=== PATIENT | male | born 1945 | race Caucasian/White ===

== ENCOUNTER 2023-03-28 18:19 | Inpatient (IN) | payer MEDICARE, BC, SELFPAY ==
[2023-03-28 18:20] VITALS: BP 143/112; PULSE 100; RESP 16; TEMP 36.4; O2SAT 98; BMI 26.6
--- NOTE | 2023-03-28 18:39 | ED.VIS.LOWEX ---
HPI History of Present Illness Chief Complaint: Wound Informant: patient Narrative Narrative: Patient presents with aches banding redness and pain to his left foot. Referred him by his primary physician. Patient is diabetic. He states his blood sugars normally run about 120-135. They have been running a little bit over 150 for the last couple days though. He does not have fevers chills sweats nausea or vomiting though. He states he had a callus on the medial aspect of his left great toe on Tuesday. But it was not red. Tuesday woke up and it was red and irritated. Tuesday evening it was red to the base of the toe. But he states today it is moved from the base of the toe over the top of the foot lateral aspect of the foot and is starting to cross the ankle and go up his leg with redness. No trauma. [facility] Medical History (Updated 03/28/23 @ 21:[address] Dagoberto Neri MD) Diabetes Home Medications amlodipine 10 mg tablet 10 mg PO DAILY 03/28/23 [History Last Taken 03/28/23] aspirin 81 mg tablet,delayed release (Adult Low Dose Aspirin) 81 mg PO DAILY 03/28/23 [History Last Taken 03/28/23] cilostazol 100 mg tablet 100 mg PO BID 03/28/23 [History Last Taken 03/28/23] doxazosin 4 mg tablet 4 mg PO QHS 03/28/23 [History Last Taken 03/27/23] dulaglutide 0.75 mg/0.5 mL subcutaneous pen injector (Trulicity) 1.5 mg subcut QWEEK 03/28/23 [History Last Taken 03/22/23] empagliflozin 25 mg tablet (Jardiance) 25 mg PO DAILY 03/28/23 [History Last Taken 03/28/23] lisinopril 10 mg-hydrochlorothiazide 12.5 mg tablet 1 tab PO DAILY 03/28/23 [History Last Taken 03/28/23] metformin 1,000 mg tablet 1,000 mg PO BID 03/28/23 [History Last Taken 03/28/23] omeprazole 20 mg capsule,delayed release 20 mg PO DAILY 03/28/23 [History Last Taken 03/28/23] Allergy/AdvReac Type Severity Reaction Status Date / Time No Known Allergies Allergy Verified 03/28/23 18:20 Family History (Updated 03/28/23 @ 21:[address] Juan M Lacy MD) Other Drug abuse Lung cancer Surgical History (Updated 03/28/23 @ 21:[address] Juan M Lacy MD) H/O foot surgery Social History Smoking Status: Former smoker ROS ROS ED ROS Narrative A complete review of systems was performed and is negative except as documented in the history of present illness. Some specific details below. Constitutional: No recent fevers or chills. No malaise. EYE: No visual complaints or pain. No clouding or blurring of vision. ENT: No difficulty swallowing. No swelling. No pain. CV: No chest pain or palpitations. Respiratory: No dyspnea. No hemoptysis. No difficulty taking breaths. GI: No nausea vomiting diarrhea or change in appetite. : No frequency dysuria or hematuria. Musculoskeletal: No recent trauma. See history of present illness Skin: No rash. Nondiaphoretic. See history of present illness. Neuro: No weakness or numbness. Endocrine: No polyuria or polydipsia. EXAM Physical Exam Narrative Exam Narrative: CONSTITUTIONAL: Patient is nontoxic in appearance. The patient looks comfortable. He does not look acutely toxic. HEENT: No notable trauma. Mucous membranes moist. No sinus tenderness. No indication of pain with swallowing. EYES: No conjunctival injection. No pallor. CARDIOVASCULAR: Regular rate. Regular rhythm. No notable murmur. No JVD. RESPIRATORY: No respiratory distress. Breathing is unlabored. No wheezes. No rhonchi. No rales. No pain with a deep breath. GASTROINTESTINAL: Not distended. Bowel sounds are normal. No tenderness. GENITOURINARY: No tenderness over the bladder. No CVA tenderness. MUSCULOSKELETAL: Distal medial aspect of the patient's left great toe shows a central callus but surrounding this is likely abscess. Tissue is white. It is not significantly fluctuant though. Around this is a fair amount of erythema. The erythema is encompasses the great toe and then goes over the dorsum of the left foot from the base of the toe across the top to the lateral aspect and then does start coming up the lateral distal leg area. The leg itself has no swelling or distended veins. No cord. NEUROLOGICAL: Patient is alert and appropriate. No focal deficit noted. SKIN: No noted rashes other than as above on the left foot. No diaphoresis. PSYCHIATRIC: Patient is calm. Mood is appropriate. Const Vital Signs: 03/28/23 18:20 03/28/23 20:03 03/28/23 20:04 Temperature 97.6 F L 98.1 F Temperature Source Temporal Oral Pulse Rate 100 87 71 Respiratory Rate 16 18 18 Blood Pressure 143/112 H 161/89 H 161/89 H Blood Pressure Mean 122 113 113 Pulse Ox 98 98 98 Oxygen Delivery Method Room Air Room Air 03/28/23 20:24 Temperature Temperature Source Pulse Rate 72 Respiratory Rate 18 Blood Pressure 153/77 H Blood Pressure Mean 102 Pulse Ox 98 Oxygen Delivery Method Room Air MDM MDM MDM Narrative Medical decision making narrative: Patient CBC shows normal white count but minimal anemia. Platelets are normal. Patient's electrolytes show minimally low potassium and this was replaced. Patient's lactic acid is normal. Patient's glucose was mildly high at 153. My independent interpretation of the patient's three-view x-ray of his left foot shows some soft tissue swelling but no definitive signs of osteo-. I do not see any gas. Final reading is similar. I discussed the case with foot and ankle surgeon Dr. Jeong. He will see the patient in consult. I then discussed case with the hospitalist and will be admitted. Although this patient's blood work does not show marked abnormalities, his sugar is higher than normal, and he has had relatively rapid progression of this erythema and lymphangitis. Lab Data Attestation: I reviewed the patient's lab results. Labs: Laboratory Results - last 24 hr 03/28/23 18:53 WBC 5.1 RBC 5.04 Hgb 12.5 L Hct 39.8 L MCV 79.0 L MCH 24.8 L MCHC 31.4 L RDW Std Deviation 43.8 RDW Coeff of Slick 15.5 H Plt Count 192 MPV 9.3 Immature Gran % (Auto) 0.600 Neut % (Auto) 63.0 Lymph % (Auto) 23.8 [place] % (Auto) 10.2 H Eos % (Auto) 2.0 Baso % (Auto) 0.4 Absolute Neuts (auto) 3.2 Absolute Lymphs (auto) 1.21 Nucleated RBC % 0 Sodium 137 Potassium 3.2 L Chloride 102 Carbon Dioxide 29.0 Anion Gap 6 BUN 18 Creatinine 1.24 Estim Creat Clear Calc 54.82 Est GFR (MDRD) Af Amer 73 Est GFR (MDRD) Non-Af 60 BUN/Creatinine Ratio 14.5 Glucose 153 H Lactic Acid 1.2 Calcium 9.3 Radiography Diagnostic Testing: Clinical Impression(s) from Imaging Studies Foot X-Ray 03/28/23 18:52 IMPRESSION: Swelling of the first digit. No radiographic evidence of osteomyelitis. Electronically Signed: Ady Altamirano MD at 19:44 EDT , Discharge Plan Dx/Rx/DC Orders Clinical Impression: Diabetic foot infection, Hyperglycemia, History of hypertension, History of diabetes mellitus Disposition Disposition: Acute Care [facility] Discharge Date/Time: 03/28/23 21:36
--- NOTE | 2023-03-28 18:52 | RAD_ITS ---
STUDY: X-RAY - LEFT FOOT CLINICAL: Male, 77 years old. osteo TECHNIQUE: 3 view(s) of the foot. COMPARISON: None. FINDINGS: Normal talus, calcaneus, and tarsal bones. Small plantar calcaneal enthesophyte. Normal visualized subtalar, talonavicular, calcaneocuboid, tarsal and tarsometatarsal articulations. Normal metatarsi. Normal metatarsophalangeal joint of the great toe. Normal tibial and fibular sesamoid bones. Normal interphalangeal joint of the great toe. Normal phalanges of the great toe. Normal second through fifth metatarsophalangeal joints. Normal interphalangeal joints and phalanges of the lesser toes. Soft tissue swelling of the first digit. No bone destruction to suggest osteomyelitis RAD/Foot min 3 Views IMPRESSION: Swelling of the first digit. No radiographic evidence of osteomyelitis. Electronically Signed: Ady Altamirano MD at 19:44 EDT ,
[2023-03-28 18:59] LABS: Absolute Lymphocyte Count 1.21 X10^3/uL (0.83-4.51); Absolute Neutrophil Count 3.2 X10^3/uL (2.0-7.7); Basophil# 0.02 X10^3/uL; Basophil% 0.4 % (0-1); Hematocrit 39.8 % (40-54); Hemoglobin 12.5 g/dL (13.0-16.5); Lymphocyte # 1.21 X10^3/ul (0.83-4.51); Lymphocyte % 23.8 % (19-41); Mean Corp Hgb Conc 31.4 g/dL (32-36); Mean Corpuscular Hgb 24.8 pg (27.0-32.0); Mean Platelet Vol. 9.3 fl (6.2-12.0); Monocyte# 0.52 X10^3/uL; Monocyte% 10.2 % (0-10); NRBC Flagged by Analyzer 0 % (0-5); Neutrophil # 3.21 X10^3/uL (2.7-7.7); Platelet Count 192 K/mm3 (150-450); RBC Distribution Width CV 15.5 % (11.6-14.6); RBC Distribution Width SD 43.8 fl (35.1-43.9); Red Blood Count 5.04 M/mm3 (4.6-6.2); White Blood Count 5.1 K/mm3 (4.4-11.0)
[2023-03-28 19:12] LABS: Anion Gap 6 (5-15); BUN 18 mg/dL (7-18); BUN/Creat Ratio 14.5 RATIO (10-20); Calcium,Total 9.3 mg/dL (8.5-10.1); Chloride 102 mmol/L (98-107); Creatinine, Serum 1.24 mg/dL (0.70-1.30); EST Glomerular Filtration Rate 60 mL/min (>60); Est Glom Filt Rate - Afr Amer 73 mL/min (>60); Estimated Creatinine Clearance 54.82 ml/min; Glucose 153 mg/dL (74-106); Potassium 3.2 mmol/L (3.5-5.1); Sodium Level 137 mmol/L (136-145)
[2023-03-28] MEDS: Vancomycin HCl 1,250 MG in 0.9% Normal Saline (250mL Bag) 250 ML 167 MG IV (19:15)
[2023-03-28 19:25] LABS: Lactic Acid 1.2 mmol/L (0.4-1.9)
[2023-03-28] MEDS: Potassium Chloride Oral Tablet 20 MEQ 40 MEQ PO (19:32)
[2023-03-28 20:03] VITALS: BP 161/89; PULSE 87; RESP 18; O2SAT 98
[2023-03-28 20:04] VITALS: BP 161/89; PULSE 71; RESP 18; TEMP 36.7; O2SAT 98
--- NOTE | 2023-03-28 20:16 | PCM.HP.STD ---
HPI - General General Date of Admission: 03/28/23 Date of Service: 03/28/23 Chief Complaint: Erythema of left foot HPI Narrative ADY SHOEMAKER, is a 77 M with a significant history of hypertension and diabetes mellitus who presents to the emergency department with erythema of his left foot. His symptoms started 2 days ago with development of pain on the callus located at the medial side of his left big toe. His symptoms progress to erythema, swelling and pain of the left big toe that progressed to his left foot and to his left leg. He called his podiatry office and was told to come to the emergency department. However he did not come to the emergency department until he went to see his PCP for regular appointment and he was again advised to come to the emergency department. He denies any fever. He has chills that he attributes to Trulicity that was started about 2 weeks ago. He has anorexia. Emergency department doctor discussed the case with podiatry who recommended admission with possible debridement and antibiotics. [facility] Medical History (Updated 03/29/23 @ 09:[address] Juan M Lacy MD) Diabetes Hypertension Hypertension Home Medications amlodipine 10 mg tablet 10 mg PO DAILY 03/28/23 [History Last Taken 03/28/23] aspirin 81 mg tablet,delayed release (Adult Low Dose Aspirin) 81 mg PO DAILY 03/28/23 [History Last Taken 03/28/23] cholecalciferol (vitamin D3) 50 mcg (2,000 unit) capsule (Vitamin D3) 2,000 unit PO DAILY vitamin 03/28/23 [History Last Taken 03/28/23] cilostazol 100 mg tablet 100 mg PO BID 03/28/23 [History Last Taken 03/28/23] cyanocobalamin (vitamin B-12) 1,000 mcg tablet,extended release (Vitamin B-12 ER) 1,000 mcg PO DAILY vitamin 03/28/23 [History Last Taken 03/28/23] doxazosin 4 mg tablet 4 mg PO QHS 03/28/23 [History Last Taken 03/27/23] dulaglutide 0.75 mg/0.5 mL subcutaneous pen injector (Trulicity) 1.5 mg subcut QWEEK 03/28/23 [History Last Taken 03/22/23] empagliflozin 25 mg tablet (Jardiance) 25 mg PO DAILY 03/28/23 [History Last Taken 03/28/23] lisinopril 10 mg-hydrochlorothiazide 12.5 mg tablet 1 tab PO DAILY 03/28/23 [History Last Taken 03/28/23] metformin 1,000 mg tablet 1,000 mg PO BID 03/28/23 [History Last Taken 03/28/23] omeprazole 20 mg capsule,delayed release 20 mg PO DAILY 03/28/23 [History Last Taken 03/28/23] Allergy/AdvReac Type Severity Reaction Status Date / Time No Known Allergies Allergy Verified 03/28/23 18:20 Family History Other Drug abuse Lung cancer Surgical History H/O foot surgery Social History Smoking Status: Former smoker ROS ROS Narrative Pertinent positives and pertinent negatives as noted in HPI. All other systems were reviewed and are negative Vital Signs Vital Signs Vital Signs: 03/28/23 18:20 03/28/23 20:03 03/28/23 20:04 Temperature 97.6 F L 98.1 F Temperature Source Temporal Oral Pulse Rate 100 87 71 Respiratory Rate 16 18 18 Blood Pressure 143/112 H 161/89 H 161/89 H Blood Pressure Mean 122 113 113 Pulse Ox 98 98 98 Oxygen Delivery Method Room Air Room Air Weight Weight: 86.636 kg Body Mass Index (BMI) 26.6 Physical Exam Narrative Physical exam: General: Well-nourished, well-developed. Head: Normocephalic, atraumatic, no tenderness Eyes: Vision is grossly intact. EOMI ENT, no trauma, moist mucous membranes, no rhinorrhea Neck: Nontender, No thyromegaly. CVS: Regular rate and rhythm. S1-S2 present. No murmur, gallop or rub. Respiratory : clear to auscultation bilaterally, chest wall nontender Abdomen: Soft, nontender, nondistended, normal bowel sounds, no masses : Deferred Back: Nontender, no CVA tenderness, no midline spinal tenderness, deformities, step-offs Extremities: Ulcer of left big toe. Erythema and swelling of left big toe extending to left leg. Tender left big toe. Right foot with no tenderness, swelling or erythema. Skin: Normal color, no trauma, abrasions Neuro: Alert, oriented, cranial nerves II through XII grossly intact. Psychiatry: Normal mood. Normal affect. Not depressed. Not anxious. Results Lab / Micro Data 03/29/23 06:40 03/29/23 06:40 Labs: Laboratory Results - last 24 hr 03/28/23 18:53: WBC 5.1, RBC 5.04, Hgb 12.5 L, Hct 39.8 L, MCV 79.0 L, MCH 24.8 L, MCHC 31.4 L, RDW Std Deviation 43.8, RDW Coeff of Slick 15.5 H, Plt Count 192, MPV 9.3, Immature Gran % (Auto) 0.600, Neut % (Auto) 63.0, Lymph % (Auto) 23.8, [place] % (Auto) 10.2 H, Eos % (Auto) 2.0, Baso % (Auto) 0.4, Absolute Neuts (auto) 3.2, Absolute Lymphs (auto) 1.21, Nucleated RBC % 0, Sodium 137, Potassium 3.2 L, Chloride 102, Carbon Dioxide 29.0, Anion Gap 6, BUN 18, Creatinine 1.24, Estim Creat Clear Calc 54.82, Est GFR (MDRD) Af Amer 73, Est GFR (MDRD) Non-Af 60, BUN/Creatinine Ratio 14.5, Glucose 153 H, Lactic Acid 1.2, Calcium 9.3 Radiology Impression Foot X-Ray 03/28/23 18:52 IMPRESSION: Swelling of the first digit. No radiographic evidence of osteomyelitis. Electronically Signed: Ady Altamirano MD at 19:44 EDT , Assessment & Plan Assessment/Plan (1) Diabetic foot ulcer: QUALIFIERS: Diabetic foot ulcer location: toe Diabetes mellitus type: type 2 Laterality: left Non-pressure ulcer stage: limited to breakdown of skin Qualified Code(s): E11.621 - Type 2 diabetes mellitus with foot ulcer; L97.521 - Non-pressure chronic ulcer of other part of left foot limited to breakdown of skin (2) Cellulitis: QUALIFIERS: Site of cellulitis: extremity Site of cellulitis of extremity: lower extremity Laterality: left Qualified Code(s): L03.116 - Cellulitis of left lower limb (3) Diabetes type 2, controlled: QUALIFIERS: Diabetes mellitus senior living insulin use: without terminal carman use Diabetes mellitus complication status: with skin complications Diabetes mellitus complication detail: with foot ulcer Qualified Code(s): E11.621 - Type 2 diabetes mellitus with foot ulcer; L97.509 - Non-pressure chronic ulcer of other part of unspecified foot with unspecified severity PLAN: Plan Infected diabetic foot ulcer with cellulitis Normal white count on presentation. Check ESR and CRP. Impression of foot x-ray by radiology: swelling of the right digit. No radiographic evidence of osteomyelitis. Foot x-ray was independently interpreted by hospitalist: Agrees with radiology interpretation Vancomycin ordered at the emergency department.t. Vancomycin continued. Cefazolin was added. We will change to Unasyn to take care of anaerobes as well. Podiatry consult. Diabetes mellitus Blood glucose is stable Home metformin held. Jardiance continued. On home Trulicity Correction scale insulin ordered. CKD stage II Stable Trend BMP. Hypertension Blood pressure is not within goal Home blood pressure medication. Trend blood pressure and adjust blood pressure medications. Hypokalemia Replaced in the ED Trend DVT prophylaxis SCDs ordered. Time spent in the patient's overall evaluation,decision-making process, review of diagnostic data, adjustment of management, discussion with other providers, nursing and ancillary staff involved in patient's care documentation, 70 minutes. Charges/Coding Visit Charges Inpatient E&M: 50403 Init Hosp L3
[2023-03-28 20:24] VITALS: BP 153/77; PULSE 72; RESP 18; O2SAT 98
--- NOTE | 2023-03-28 20:48 | CM.ED ---
Social Work SW performed chart review; ADs not on file. SW met with patient and introduced self and role as [facility] SW. Patient seated on hospital bed and agreeable to speak to SW. SW inquired about completion of ADs. Patient confirms LW and HCPOA documents were completed. Patient's HCPOA is patient's , November with no alternates listed. SW encouraged patient to bring a copy to add to patient's chart when they are able; patient voiced understanding. Janet Alonzo CORPORATE ADMINISTRATIVE ASSISTANT, MUNDO
[2023-03-28 21:01] LABS: Bedside Glucose 98 mg/dL (74-106)
[2023-03-28 21:27] VITALS: BP 145/79; PULSE 67; RESP 18; TEMP 36.6; O2SAT 94
[2023-03-28 21:50] VITALS: BMI 26.4
[2023-03-28 22:00] VITALS: BP 131/69; PULSE 88; RESP 17; TEMP 36.6; O2SAT 97
[2023-03-28] MEDS: Cefazolin 2 GM in 0.9% Normal Saline (100mL Bag) 100 ML IV (22:35)
[2023-03-28] MEDS: 0.9% Saline Lock 10 ML Syringe IV (22:35)
[2023-03-28] MEDS: Doxazosin 4 MG Tablet PO (22:36)
[2023-03-28] MEDS: Cilostazol 50 MG Tablet 100 MG PO (22:36)
[2023-03-28 22:43] LABS: Bedside Glucose 148 mg/dL (74-106)
[2023-03-29 04:00] VITALS: BP 128/65; PULSE 82; RESP 16; TEMP 36.6; O2SAT 98
[2023-03-29] MEDS: Cefazolin 2 GM in 0.9% Normal Saline (100mL Bag) 100 ML IV (06:24)
[2023-03-29 06:47] LABS: Bedside Glucose 132 mg/dL (74-106)
[2023-03-29 07:01] LABS: Absolute Lymphocyte Count 0.83 X10^3/uL (0.83-4.51); Absolute Neutrophil Count 2.7 X10^3/uL (2.0-7.7); Basophil# 0.03 X10^3/uL; Basophil% 0.7 % (0-1); Eosinophil# 0.08 X10^3/uL; Eosinophils% 1.9 % (0-5); Hemoglobin 11.5 g/dL (13.0-16.5); Lymphocyte # 0.83 X10^3/ul (0.83-4.51); Lymphocyte % 20.1 % (19-41); Mean Corp Hgb Conc 31.9 g/dL (32-36); Mean Corpuscular Hgb 25.1 pg (27.0-32.0); Mean Corpuscular Volume 78.4 fL (80-94); Mean Platelet Vol. 9.1 fl (6.2-12.0); Monocyte# 0.46 X10^3/uL; Monocyte% 11.1 % (0-10); NRBC Flagged by Analyzer 0 % (0-5); Neutrophil % 65.5 % (47-70); Platelet Count 185 K/mm3 (150-450); RBC Distribution Width CV 15.2 % (11.6-14.6); RBC Distribution Width SD 43.4 fl (35.1-43.9); Red Blood Count 4.59 M/mm3 (4.6-6.2); White Blood Count 4.1 K/mm3 (4.4-11.0)
[2023-03-29 07:03] VITALS: O2SAT 97
[2023-03-29 07:30] LABS: Anion Gap 7 (5-15); BUN 15 mg/dL (7-18); BUN/Creat Ratio 13.6 RATIO (10-20); Calcium,Total 8.7 mg/dL (8.5-10.1); Chloride 106 mmol/L (98-107); EST Glomerular Filtration Rate 69 mL/min (>60); Est Glom Filt Rate - Afr Amer 84 mL/min (>60); Glucose 130 mg/dL (74-106); Potassium 3.7 mmol/L (3.5-5.1); Sodium Level 138 mmol/L (136-145)
--- NOTE | 2023-03-29 07:54 | PCM.PN.HOSP ---
Reason for Visit Reason for Visit: Patient is a 77-year-old gentleman with multiple comorbidities including diabetes mellitus type 2, essential hypertension who presented with left foot ulcer with cellulitis. Imaging studies on admission was negative for osteomyelitis admitted to regular nursing floor with consultation placed to podiatry Objective Data Objective Data Vital Signs: Vital Signs Temp Pulse Resp BP Pulse Ox O2 Del Method 97.9 F 82 16 128/65 H 98 Room Air 03/29/23 04:00 03/29/23 04:00 03/29/23 04:00 03/29/23 04:00 03/29/23 04:00 03/29/23 04:00 Oxygen Delivery Method Room Air Weight: 86.2 kg Body Mass Index (BMI) 26.4 Intake & Output: Intake and Output for Last 24 Hours 03/27/23 03/28/23 03/29/23 23:59 23:59 23:59 Intake Total 385 / 385 Balance 385 / 385 Lab / Micro Data 03/29/23 06:40 03/29/23 06:40 Labs: Laboratory Results - last 24 hr 03/28/23 18:53: WBC 5.1, RBC 5.04, Hgb 12.5 L, Hct 39.8 L, MCV 79.0 L, MCH 24.8 L, MCHC 31.4 L, RDW Std Deviation 43.8, RDW Coeff of Slick 15.5 H, Plt Count 192, MPV 9.3, Immature Gran % (Auto) 0.600, Neut % (Auto) 63.0, Lymph % (Auto) 23.8, [place] % (Auto) 10.2 H, Eos % (Auto) 2.0, Baso % (Auto) 0.4, Absolute Neuts (auto) 3.2, Absolute Lymphs (auto) 1.21, Nucleated RBC % 0, Sodium 137, Potassium 3.2 L, Chloride 102, Carbon Dioxide 29.0, Anion Gap 6, BUN 18, Creatinine 1.24, Estim Creat Clear Calc 54.82, Est GFR (MDRD) Af Amer 73, Est GFR (MDRD) Non-Af 60, BUN/Creatinine Ratio 14.5, Glucose 153 H, Lactic Acid 1.2, Calcium 9.3 03/28/23 20:43: POC Glucose 98 03/28/23 22:24: POC Glucose 148 H 03/29/23 06:26: POC Glucose 132 H 03/29/23 06:40: WBC 4.1 L, RBC 4.59 L, Hgb 11.5 L, Hct 36.0 L, MCV 78.4 L, MCH 25.1 L, MCHC 31.9 L, RDW Std Deviation 43.4, RDW Coeff of Slick 15.2 H, Plt Count 185, MPV 9.1, Immature Gran % (Auto) 0.700, Neut % (Auto) 65.5, Lymph % (Auto) 20.1, [place] % (Auto) 11.1 H, Eos % (Auto) 1.9, Baso % (Auto) 0.7, Absolute Neuts (auto) 2.7, Absolute Lymphs (auto) 0.83, Nucleated RBC % 0, Sodium 138, Potassium 3.7, Chloride 106, Carbon Dioxide 25.0, Anion Gap 7, BUN 15, Creatinine 1.10, Estim Creat Clear Calc 61.80, Est GFR (MDRD) Af Amer 84, Est GFR (MDRD) Non-Af 69, BUN/Creatinine Ratio 13.6, Glucose 130 H, Calcium 8.7 Radiography Diagnostic Testing: Radiology Impression Foot X-Ray 03/28/23 18:52 IMPRESSION: Swelling of the first digit. No radiographic evidence of osteomyelitis. Electronically Signed: Ady Altamirano MD at 19:44 EDT , Physical Exam Narrative GENERAL: cooperative HEENT: Atraumatic; normocephalic EYES; Anicteric, Normal Conjunctiva NECK; supple, normal thyroid, RESPIRATORY: Diminished to auscultation CARDIOVASCULAR: Regular S1 S2, GI: soft, normoactive bowel sounds, : No Renal angle tenderness; EXTREMITIES: No edema, no clubbing, MUSCULOSKELETAL: Left foot in surgical dressing NEURO: Awake; no lateralizing signs. SKIN: No Rash PSYCH; Flat affect Assessment & Plan Assessment/Plan (1) Diabetic foot infection: PLAN: Plan Patient is a 77-year-old gentleman with multiple comorbidities including diabetes mellitus type 2, essential hypertension who presented with left foot ulcer with cellulitis. Imaging studies on admission was negative for osteomyelitis admitted to regular nursing floor with consultation placed to podiatry 1. Infected diabetic foot ulcer with cellulitis ? Imaging studies negative for osteomyelitis. Patient started on broad-spectrum antibiotic therapy. Consult placed to podiatry patient seen by Dr. Srinivas Bellamy with plan for patient to undergo left hallux interphalangeal joint arthroplasty on 03/30/2023 2. Diabetes mellitus type 2 ? Held patient oral agents placed on Accu-Cheks before meals and at bedtime with sliding scale coverage 3. Hypertension - Blood pressure controlled, home medications continued with dose adjustment as needed 4. Hypokalemia ? Corrected per protocol repeat labs ordered for subsequent monitoring 5. DVT prophylaxis ? SCDs for now with plans to initiate chemoprophylaxis following patient surgery Time spent in the patient's overall evaluation,decision-making process, review of diagnostic data, adjustment of management, discussion with other providers, nursing nursing and ancillary staff involved in patient's care documentation, 40 Minutes Charges/Coding Visit Charges Inpatient E&M: 93763 Subs Hosp L2
--- NOTE | 2023-03-29 07:59 | MRI_ITS ---
EXAM: MR FOOT W/O Contrast LEFT HISTORY: foot infection TECHNIQUE: MR FOOT W/O Contrast LEFT COMPARISON: XR left foot March 28, 2023. LIMITATIONS: None. FINDINGS: Subcutaneous edema at the dorsum of the foot and at the plantar aspect of the first digit to a lesser degree. No abscess identified. Signal within the distal phalanx of the first digit is mildly increased on the STIR images. There is no corresponding decreased T1 signal. No osseous erosion. No acute fracture. MRI/Lower Ext/No Jt/w/o IMPRESSION: Questionable mild marrow edema of the distal phalanx of the first digit. This could be artifactual or due to reactive marrow edema. Early osteomyelitis is difficult to exclude, but findings are not definitive. Electronically Signed: Jerome Hurst MD at 19:40 EDT ,
--- NOTE | 2023-03-29 08:08 | PCM.CONS.GEN ---
Assessment & Plan Assessment/Plan (1) Hallux rigidus, left foot: PLAN: Exam performed Patient vitally stable, labs within normal limits, radiographs negative for osteomyelitis Left foot MRI ordered Left foot wound was excisionally debrided down to including level subcutaneous tissue of all nonviable tissue using a sterile 15 blade. This was performed without incident. No anesthesia due to neuropathy. Patient tolerated procedure well. Hemostasis obtained with light compression. Pre and postdebridement measurements documented in objective section. Wound cultures taken. Site dressed with Betadine DSD Eusebio bandage Patient heel weightbearing in surgical shoe on left side Planning for left hallux interphalangeal joint arthroplasty on 03/30/2023 (2) Abscess of left foot: (3) Diabetic foot infection: (4) Non-pressure chronic ulcer of other part of left foot with fat layer exposed: HPI Consult Data Date of Consult: 03/29/23 HPI Narrative HPI Narrative: SHELLI SHOEMAKER, is a 77 M who presents with left hallux redness swelling pain and purulent drainage. Patient admitted through ER. Radiographs were negative. Patient usually gets a callus to the site. Patient typically self Layla the site. Patient is diabetes been relatively well controlled and he has intact sensation. Patient denies constitutional symptoms has no other complaints. This problem started over the weekend is progressively gotten worse. FORMERLY [facility] Medical History Diabetes Hypertension Home Medications amlodipine 10 mg tablet 10 mg PO DAILY 03/28/23 [History Last Taken 03/28/23] aspirin 81 mg tablet,delayed release (Adult Low Dose Aspirin) 81 mg PO DAILY 03/28/23 [History Last Taken 03/28/23] cholecalciferol (vitamin D3) 50 mcg (2,000 unit) capsule (Vitamin D3) 2,000 unit PO DAILY vitamin 03/28/23 [History Last Taken 03/28/23] cilostazol 100 mg tablet 100 mg PO BID 03/28/23 [History Last Taken 03/28/23] cyanocobalamin (vitamin B-12) 1,000 mcg tablet,extended release (Vitamin B-12 ER) 1,000 mcg PO DAILY vitamin 03/28/23 [History Last Taken 03/28/23] doxazosin 4 mg tablet 4 mg PO QHS 03/28/23 [History Last Taken 03/27/23] dulaglutide 0.75 mg/0.5 mL subcutaneous pen injector (Trulicity) 1.5 mg subcut QWEEK 03/28/23 [History Last Taken 03/22/23] empagliflozin 25 mg tablet (Jardiance) 25 mg PO DAILY 03/28/23 [History Last Taken 03/28/23] lisinopril 10 mg-hydrochlorothiazide 12.5 mg tablet 1 tab PO DAILY 03/28/23 [History Last Taken 03/28/23] metformin 1,000 mg tablet 1,000 mg PO BID 03/28/23 [History Last Taken 03/28/23] omeprazole 20 mg capsule,delayed release 20 mg PO DAILY 03/28/23 [History Last Taken 03/28/23] Allergy/AdvReac Type Severity Reaction Status Date / Time No Known Allergies Allergy Verified 03/28/23 18:20 Family History Other Drug abuse Lung cancer Surgical History H/O foot surgery Social History Smoking Status: Former smoker ROS Constitutional Constitutional: Denies daytime sleepiness, lethargy or malaise Eyes Eyes: Denies blind spots, bloody eye or discharge from eye(s) ENT HEENT: Denies change in voice, dental pain or foreign body in nose Cardiovascular Cardiovascular: Denies abdominal pain, claudication or clubbing Respiratory/Chest Respiratory/Chest: Denies change in phlegm color, chest congestion or dyspnea on exertion Gastrointestinal Gastrointestinal: Denies change in bowel habits, dry heaves or dyspepsia Physical Exam Narrative Dorsalis pedis posterior tibial pulses palpable 2 out of 4 to bilateral lower extremity. Digital hair growth noted bilaterally. No signs of atrophic skin changes. Neurologic light touch protective sensation intact bilateral feet Dermatologic predebridement there is noted to be a purulent bolus to the left medial hallucal IPJ postdebridement there is a full-thickness wound down to level of subcutaneous tissue measuring approximately 4.0 x 3.0 by 0.4 cm with significant periwound edema erythema malodor as well as warmth. No evidence of fluctuance or crepitus. Patient has diminished left hallux metatarsophalangeal joint range of motion to less than 20 degrees of dorsiflexion. This contributing to wound formation Const alert and oriented x3 Lab / Micro Data 03/29/23 06:40 03/29/23 06:40 Labs: Laboratory Results - last 24 hr 03/28/23 18:53: WBC 5.1, RBC 5.04, Hgb 12.5 L, Hct 39.8 L, MCV 79.0 L, MCH 24.8 L, MCHC 31.4 L, RDW Std Deviation 43.8, RDW Coeff of Slick 15.5 H, Plt Count 192, MPV 9.3, Immature Gran % (Auto) 0.600, Neut % (Auto) 63.0, Lymph % (Auto) 23.8, Montrose % (Auto) 10.2 H, Eos % (Auto) 2.0, Baso % (Auto) 0.4, Absolute Neuts (auto) 3.2, Absolute Lymphs (auto) 1.21, Nucleated RBC % 0, Sodium 137, Potassium 3.2 L, Chloride 102, Carbon Dioxide 29.0, Anion Gap 6, BUN 18, Creatinine 1.24, Estim Creat Clear Calc 54.82, Est GFR (MDRD) Af Amer 73, Est GFR (MDRD) Non-Af 60, BUN/Creatinine Ratio 14.5, Glucose 153 H, Lactic Acid 1.2, Calcium 9.3 03/28/23 20:43: POC Glucose 98 03/28/23 22:24: POC Glucose 148 H 03/29/23 06:26: POC Glucose 132 H 03/29/23 06:40: WBC 4.1 L, RBC 4.59 L, Hgb 11.5 L, Hct 36.0 L, MCV 78.4 L, MCH 25.1 L, MCHC 31.9 L, RDW Std Deviation 43.4, RDW Coeff of Slick 15.2 H, Plt Count 185, MPV 9.1, Immature Gran % (Auto) 0.700, Neut % (Auto) 65.5, Lymph % (Auto) 20.1, Montrose % (Auto) 11.1 H, Eos % (Auto) 1.9, Baso % (Auto) 0.7, Absolute Neuts (auto) 2.7, Absolute Lymphs (auto) 0.83, Nucleated RBC % 0, Sodium 138, Potassium 3.7, Chloride 106, Carbon Dioxide 25.0, Anion Gap 7, BUN 15, Creatinine 1.10, Estim Creat Clear Calc 61.80, Est GFR (MDRD) Af Amer 84, Est GFR (MDRD) Non-Af 69, BUN/Creatinine Ratio 13.6, Glucose 130 H, Calcium 8.7 Radiology Impression Foot X-Ray 03/28/23 18:52 IMPRESSION: Swelling of the first digit. No radiographic evidence of osteomyelitis. Electronically Signed: Shelli Altamirano MD at 19:44 EDT ,
[2023-03-29] MEDS: Vancomycin HCl 750 MG in 0.9% Normal Saline (250mL Bag) 250 ML 250 MG IV ×2 (08:12→19:03)
[2023-03-29] MEDS: Aspirin E.C. 81 MG Tablet PO (09:10)
[2023-03-29] MEDS: hydroCHLOROthiazide 12.5mg 12.5 MG PO (09:13)
[2023-03-29 09:14] LABS: Erythrocyte Sedimentation Rate 36 mm/hr (0-20)
[2023-03-29] MEDS: Lisinopril 10 MG Tablet PO (09:14)
[2023-03-29] MEDS: Cilostazol 50 MG Tablet 100 MG PO ×2 (09:14→21:00)
[2023-03-29] MEDS: Pantoprazole Sodium 20 MG Tablet PO (09:14)
[2023-03-29] MEDS: Empagliflozin 25 MG Tablet PO (09:14)
[2023-03-29] MEDS: amLODIPine 10 MG Tablet PO (09:14)
--- NOTE | 2023-03-29 09:27 | WOUNDNOTE ---
wound photo: left foot medial side of great toe
--- NOTE | 2023-03-29 09:28 | CASEMGMT ---
Social Work Patient has Power of Computer Systems Administrator in place, identified as November. Patient unable to provide documents at this time, was asked to bring in copy to have scanned into EMR. JACOB Arteaga, MARKETING OPERATIONS INTERN
[2023-03-29] MEDS: 0.9% Saline Lock 10 ML Syringe IV ×2 (09:51→18:08)
[2023-03-29 10:00] VITALS: BP 139/69; PULSE 85; RESP 16; TEMP 36.4; O2SAT 98
[2023-03-29] MEDS: Ampicillin/Sulbactam 3 GM in 0.9% Normal Saline (100mL MB+) 100 ML IV ×3 (11:27→23:17)
[2023-03-29] MEDS: Cholecalciferol (VIT D3) 25 MCG TABLET (1,000 UNITS) 50 MCG PO (11:32)
[2023-03-29] MEDS: Cyanocobalamin 500 MCG Tablet 1000 MCG PO (11:32)
[2023-03-29 11:47] LABS: Bedside Glucose 149 mg/dL (74-106)
[2023-03-29 12:03] LABS: Hemoglobin A1c 6.9 % (3.8-5.6)
[2023-03-29 14:14] VITALS: BP 128/77; PULSE 84; RESP 18; TEMP 36.8; O2SAT 96
--- NOTE | 2023-03-29 14:39 | CHAPLAIN ---
Type of Pastoral Visit _x__ Initial Visit ___ Follow-up Visit ___ On-call Visit ___ General Patient Visit ___ Spiritual Assessment ___ Family Conference ___ Bereavement ___ Rapid Response ___ Code Blue ___ Other (describe below) Pastoral Care Referral From _x__ Patient ___ Family ___ Nurse ___ Physician ___ Suction Roller ___ Roller Man ___ Other (describe below) Sacrament/Intervention _x__ Active listening ___ Anointing ___ Denominational ___ Bereavement ___ Communion _x__ Ana Laura exploration ___ _x__ Life review _x__ Prayer ___ Reconciliation ___ Sacrament of Sick ___ Supportive presence ___ Wedding ___ Other (describe below) Pastoral Comments patient speaks about his health and his distrust of doctors and hospitals; pt states I still like nurses though; pt presents with attitude of knowing best for himself what he needs; pt is more hopeful at this hospital because it has treated me well before; pt states that he has great ana laura in God and has seen evidence of God's work through the healing of cancer in his granddaughter; pt welcomes prayer for his need today
--- NOTE | 2023-03-29 15:45 | CASEMGMT ---
RN?CM?QUILT MAKER?CM?to room to meet with patient for initial transition planning/care coordination?assessment.?RN?CM?introduced self and role at [facility].? Pt voices understanding and consents to?assessment?at this time.? Pt resting in bed in no distress at this time.? Pt is A/O at this time and answers all questions appropriately.?? Care providers, pharmacy, and demographics verified/updated at this time. PCP: Dr Emanuel Specialists: none Preferred Pharmacy: [facility] Retail Insurance: Dawn IQBAL Prescription Benefit:?Yes Living Will/HPOA:?Has both LW and HCPOA, who is his , November LNOK: , November Living Arrangements: Lives w/his and 22-yr-old grand-dtr in one-story home w/2-3 steps to enter and states does okay w/the stairs. is currently getting chemo. Grand-dtr does most home mgnt tasks. Pt is indep w/ADL's and manages his own medications. Transportation:?Pt states drives self and states no transportation concerns at this time.? also drives. Grand-dtr does not drive, but goes to appt's w/. DME: ?States has the following DME:?CPAP thru [employer], functioning glucometer w/supplies. ?Pt states no need for further DME at this time.? HHC/SNF: No hx of either and denies needs. Pt states, if wound care is needed, either his and grand-dtr can learn how to complete, or he is willing to learn. Pt wishes to return home and states has no concerns with going home at time of discharge.? CM?to follow for any discharge planning/needs.? Pt voices no further concerns/needs at this time.? Advised pt to ask for?CM?if any further questions/concerns/needs arise.? Voices understanding. PLAN:??Home w/family support and discharge plans in place. Estephanie BSN?RN?CM
[2023-03-29] MEDS: 0.9% Normal Saline (250mL Bag) 250 ML 15 ML IV (18:08)
[2023-03-29 20:15] VITALS: BP 127/85; PULSE 86; RESP 18; TEMP 36.8; O2SAT 97
[2023-03-29] MEDS: Doxazosin 4 MG Tablet PO (20:59)
[2023-03-29] MEDS: Insulin Lispro 100 UNIT/ML INSULN.PEN SC (21:12)
[2023-03-29 22:50] LABS: Bedside Glucose 169 mg/dL (74-106)
[2023-03-29 23:11] VITALS: BP 127/75; PULSE 80; RESP 18; TEMP 36.6; O2SAT 96
[2023-03-30] VITALS (12 sets, daily range): BP systolic 109–150; BP diastolic 67–113; PULSE 80–97; RESP 16–18; TEMP 36.4–37.4; O2SAT 93–98; BMI 26.4
--- NOTE | 2023-03-30 06:00 | EKG12_ITS ---
Test Reason : AM EKG Blood Pressure : / mmHG Vent. Rate : 079 BPM Atrial Rate : 079 BPM P-R Int : 156 ms QRS Dur : 140 ms QT Int : 410 ms P-R-T Axes : -01 267 023 degrees QTc Int : 470 ms Sinus rhythm with Premature supraventricular complexes Right bundle branch block Possible Lateral infarct , age undetermined Inferior infarct , age undetermined Abnormal ECG No previous ECGs available Confirmed by CRUZITO OWUSU, UMA ([id number]), proposal editor HUMPHREY FERANNDO ([id number]) on 04/08/2023 9:52:42 AM Referred By: LAW Confirmed By:UMA EAST MD
[2023-03-30] MEDS: Ampicillin/Sulbactam 3 GM in 0.9% Normal Saline (100mL MB+) 100 ML IV ×3 (06:05→17:37)
[2023-03-30 06:46] LABS: Bedside Glucose 135 mg/dL (74-106)
[2023-03-30 07:46] LABS: Vancomycin, Trough Level 13.2 ug/mL (5.0-15.0)
[2023-03-30] MEDS: Cholecalciferol (VIT D3) 25 MCG TABLET (1,000 UNITS) 50 MCG PO (08:11)
[2023-03-30] MEDS: Cyanocobalamin 500 MCG Tablet 1000 MCG PO (08:11)
[2023-03-30] MEDS: hydroCHLOROthiazide 12.5mg 12.5 MG PO (08:11)
[2023-03-30] MEDS: amLODIPine 10 MG Tablet PO (08:11)
[2023-03-30] MEDS: Cilostazol 50 MG Tablet 100 MG PO ×2 (08:12→22:07)
[2023-03-30] MEDS: Empagliflozin 25 MG Tablet PO (08:12)
[2023-03-30] MEDS: Lisinopril 10 MG Tablet PO (08:12)
[2023-03-30] MEDS: Pantoprazole Sodium 20 MG Tablet PO (08:12)
--- NOTE | 2023-03-30 08:15 | PHA.PHARE_ITS ---
Consult Antibiotic Management Pharmacy has been consulted to manage selected antiobiotic: Vancomycin Type of Intervention Type of Consult: Follow-up Suspected Infection Suspected Infection: Skin/Soft tissue Prior Doses of Antibiotics Prior Doses of Antibiotics Received/Current Regimen: Received 1250mg iv x 1 loading dose 03.28.23. Then on 750mg iv q12 and has rece ived 2 doses. Labs Labs: Sodium 138 mmol/L (136-145) 03/29/23 06:40 Potassium 3.7 mmol/L (3.5-5.1) 03/29/23 06:40 Chloride 106 mmol/L (98-107) 03/29/23 06:40 Carbon Dioxide 25.0 mmol/L (21.0-32.0) 03/29/23 06:40 Anion Gap 7 (5-15) 03/29/23 06:40 BUN 15 mg/dL (7-18) 03/29/23 06:40 Creatinine 1.10 mg/dL (0.70-1.30) 03/29/23 06:40 Est GFR (MDRD) Af Amer 84 mL/min (>60) 03/29/23 06:40 Est GFR (MDRD) Non-Af 69 mL/min (>60) 03/29/23 06:40 BUN/Creatinine Ratio 13.6 RATIO (10-20) 03/29/23 06:40 Glucose 130 mg/dL (74-106) H 03/29/23 06:40 Vancomycin Trough 13.2 ug/mL (5.0-15.0) 03/30/23 06:45 Dosing Weight Weight used for dosin kg Estimated Creatinine Clearance Estimated Creatinine Clearance: 71 ml/min Goal Trough Goal Trough: 15-20 mcg/mL Pharmacy Plan for Drug Dosing Pharmacy Plan for Drug Dosing: Trough today 13.2 and slightly below goal of 15-20. Renal Cr 1.1 with Cl ~71ml/min. Recommend increasing dose to 1000mg iv q12h. New trough has been ordered for before 4th dose of new regimen. Pharmacy Service will continue to monitor and adjust dosing as required. Follow-Up Labs Follow-Up Labs: Trough: Vancomycin (03.31.232029)
[2023-03-30] MEDS: Vancomycin IV 1,000 MG/200 ML BAG 200 MG IV ×2 (09:24→22:00)
[2023-03-30] MEDS: Insulin Lispro 100 UNIT/ML INSULN.PEN SC (11:43)
[2023-03-30 12:04] LABS: Bedside Glucose 181 mg/dL (74-106)
[2023-03-30] MEDS: Lactated Ringers 1,000 ML 15 ML IV (14:06)
--- NOTE | 2023-03-30 14:50 | BON_PTH ---
PATIENT: SHELLI SHOEMAKER LOC: 3 U#:[id number] AGE/SX: 77/M ROOM: [facility] RE03/28/[address]: Dr. Harrison Carmona DO : 1945 BED: 1 DIS: 04/01/2023 SPEC #: [id number] RECD: 03/30/23 16:48 STATUS: KAYLI REQ #: [id number] JUVENAL: 03/30/23 14:[address]: Srinivas Jeong DEPT: SURGICAL PATHOLOGY RECD BY: Ginna Gray ENTERED: 03/31/23 09:51 SP TYPE: Bone OTHR DR: Dr. Srinivas Jeong, DPM MD Dr. Juan M Vitale MD Dr. Liza D Talampas, MD Dr. Mark Tereletsky, DO Dr. Robert Leininger, MD Tissues: Phalanx of foot, NOS Procedures: Decalcification bone/plaque Surgery Specimen Level IV Comments: @ Ordering doctor for DEC edited from to @ by APRIL at 03/31/23 151 @ Ordering doctor for SUIV edited from to DR.DBULLA Parisi by APRIL at 03/31/23 1518 @ Submitting doctor edited from to DR.DBULLA Parisi by APRIL at 03/31/238 HEADER OPERATION: I & D of abscess with hallux interphalangeal joint PRE-OP DIAGNOSIS: Left diabetic foot wound, left hallux rigidus TISSUE SUBMITTED: Proximal phalanx head left hallux MICROSCOPIC DIAGNOSIS Proximal phalanx head left hallux, excision: Pieces of bone with adherent fibroconnective tissue with reactive changes, minimal chronic inflammation and negative for acute osteomyelitis. BOBBI:anjali 04/08/2023 MICROSCOPIC DESCRIPTION Slides are reviewed. GROSS DESCRIPTION Received in fixative is one container labeled with the patient's name and designated proximal phalanx head left hallux. The specimen consists of multiple irregular fragments of lopez bone that in aggregate measure 4.0 x 3.0 x 0.7 cm. The entire specimen is submitted in two cassettes after decalcifications. / AM:anjali 03/31/2023 TC:2 CPT: 02092, 93291
[2023-03-30] MEDS: Bupivacaine Mpf 0.5% 30 ML VIAL (15:23)
--- NOTE | 2023-03-30 16:01 | PCM.OPRPT ---
Problems Associated Problem List Diagnoses (1) Non-pressure chronic ulcer of other part of left foot with fat layer exposed: (2) Abscess of left foot: (3) Hallux rigidus, left foot: Report of Operation Date of Procedure: 03/30/23 Pre-Operative Diagnosis: 1) Left hallux nueropathic ulceration 2) Left hallux rigidus 3) Left hallux cellulitis Post-Operative Diagnosis: same Surgery/Procedure Performed:: Left hallux interphalangeal joint arthroplasty Description of Surgical Findings:: No evidence of deep abscess or osteomyelitis. After procedure there is adequate flexibility of the hallux interphalangeal joint which should prevent future recurrent ulceration to the left hallux. Surgeon: Srinivas Jeong primary counselor: None (josue marie) Type of Anesthesia: General Special Medications: 10 cc half percent Marcaine plain Specimen's removed: Left hallux proximal phalangeal head, swab cultures left hallux Drains: None Estimated Blood Loss (mL): 5 cc Description of Procedure: Patient brought back the operating placed complete in supine position on the operating room table. Patient induced under general anesthesia. Left lower extremity scrubbed prepped draped using typical aseptic fashion. A Mcdermott block was performed using 10 cc half percent Marcaine plain to left first metatarsal. At the level of the hallux interphalangeal joint a medial incision was drawn and then made full-thickness down to the level of bone any bleeders identified cauterized. The proximal phalangeal head was then dissected out and released from the interphalangeal joint and removed using a sagittal saw. Adequate resection was noted to allow for increased interphalangeal joint range of motion and offloading of the plantar medial hallux wound. Site was flushed with copious amounts of normal sterile saline. Swab cultures taken. Incision was closed with horizontal mattress 3-0 nylon. Dressed site with Betadine Adaptic 4 x 4's Kerlix web roll and Eusebio bandage. No tourniquet used. No evidence of deep tissue breakdown, abscess or osteomyelitis. Patient transferred to PACU vital signs stable and vascular status intact all digits for further monitoring prior to transfer back to floor. Patient tolerated procedure and anesthesia well apparent satisfactory condition. No complications.
[2023-03-30 16:41] LABS: Bedside Glucose 94 mg/dL (74-106)
[2023-03-30] MEDS: 0.9% Saline Lock 10 ML Syringe IV ×2 (17:37→22:38)
--- NOTE | 2023-03-30 17:38 | PCM.PN.HOSP ---
Reason for Visit Reason for Visit: Diagnoses Type 2 diabetes mellitus with foot ulcer (03/28/23) Type 2 diabetes mellitus with other skin complications (03/28/23) Cutaneous abscess of left foot (03/28/23) Cellulitis of left lower limb (03/28/23) Local infection of the skin and subcutaneous tissue, unspecified (03/28/23) Non-pressure chronic ulcer of other part of unspecified foot with unspecified severity (03/28/23) Non-pressure chronic ulcer of other part of left foot limited to breakdown of skin (03/28/23) Non-pressure chronic ulcer of other part of left foot with fat layer exposed (03/28/23) Hallux rigidus, left foot (03/28/23) Subjective Subjective Patient was seen and examined today, he underwent surgery today-he had a left hallux interphalangeal joint arthroplasty, I had infectious diseases see the patient today for further input. Objective Data Objective Data Vital Signs: Vital Signs Temp Pulse Resp BP Pulse Ox O2 Del Method O2 Flow Rate 98.3 F 81 18 129/86 H 96 Room Air 2 03/30/23 16:45 03/30/23 16:45 03/30/23 16:45 03/30/23 16:45 03/30/23 16:45 03/30/23 16:45 03/30/23 05:11 Oxygen Flow Rate (L/min) 2 Oxygen Delivery Method Room Air Weight: 86.2 kg Body Mass Index (BMI) 26.4 Intake & Output: Intake and Output for Last 24 Hours 03/28/23 03/29/23 03/30/23 23:59 23:59 23:59 Intake Total 385 / 385 865.75 / 865.75 644.75 / 644.75 Balance 385 / 385 865.75 / 865.75 644.75 / 644.75 Medical Nutrition Assessment Dietitian: Malnutrition Criteria Met Start: 03/30/23 14:41 Freq: Status: Active Protocol: Document 03/30/23 15:00 RMA (Rec: 03/30/23 15:00 RMA [id number]) Nutrition Malnutrition Malnutrition (moderate): Acute Illness/Injury Evidenced By Suboptimal Energy Intake ( Moderate),Weight Loss ( Moderate) Intake Problem Inadequate Oral Intake Etiology related to procedure during admit and altered GI function prior to admit Signs/Symptoms as evidenced by NPO currently Status Active Problem Clinical Problem Acute Disease or Injury Related Malnutrition Etiology Moderate protein-calorie malnutrition in the context of acute illness related to altered GI function/inadequate oral intake Signs/Symptoms as evidenced by ~14% unintentional weight loss x 1 year and PO meeting less than 75% estimated nutrition needs Status Active Problem Recommendation Dietitian Recommendations/Changes Recommend diet as tolerated to 2000 calorie consistent carbohydrate. Will add Kalpesh BID w/ medpass. Will add 240 mL glucena shake w/ breakfast meal. Lab / Micro Data 03/29/23 06:40 03/29/23 06:40 Labs: Laboratory Results - last 24 hr 03/29/23 21:04: POC Glucose 169 H 03/30/23 06:12: POC Glucose 135 H 03/30/23 06:45: Vancomycin Trough 13.2 03/30/23 11:40: POC Glucose 181 H 03/30/23 16:22: POC Glucose 94 Micro: Microbiology 03/29/23 08:00 Wound - Left Foot Gram Stain - Final 03/29/23 08:00 Wound - Left Foot Wound Culture - Preliminary GNR lactose incendiaries supervisor Staphylococcus species Beta streptococcus Alpha hemolytic organism Radiography Diagnostic Testing: Radiology Impression Lower Extremity MRI 03/29/23 07:59 IMPRESSION: Questionable mild marrow edema of the distal phalanx of the first digit. This could be artifactual or due to reactive marrow edema. Early osteomyelitis is difficult to exclude, but findings are not definitive. Electronically Signed: Jerome Hurst MD at 19:40 EDT , Physical Exam Const alert, oriented x3, no apparent distress and healthy appearing General Appearance: cooperative, well kempt and well developed Orientation / Consciousness: awake, oriented to person, oriented to place and oriented to time HEENT normocephalic, head/scalp atraumatic and moist oral mucous membranes Eyes PERRL, EOMs intact bilaterally and conjunctivae normal Neck supple, no JVD, thyroid normal and no carotid bruits General: trachea midline Resp normal respiratory effort and clear to auscultation bilaterally Auscultation: Negative for rales, rhonchi or wheezes Cardio regular rate, regular rhythm, S1 normal heart sound, S2 normal heart sound, no murmurs, no rub and no gallops GI normal to inspection, nondistended, normoactive bowel sounds, soft to palpation, non-tender and non-distended Extremity Extremity Narrative: Patient's left foot was wrapped in surgical dressing, this was not removed for examination of the area Skin no rashes or lesions noted General Skin Exam: no breakdown Neuro oriented x3, CN's II-XII intact bilaterally, no focal motor deficits and no sensory deficits noted Sensorium / Orientation: awake and alert Speech: speech normal Psych affect normal Assessment & Plan Assessment/Plan (1) Non-pressure chronic ulcer of other part of left foot with fat layer exposed: PLAN: Plan 1. 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
--- NOTE | 2023-03-30 18:10 | RAD_ITS ---
INDICATION: left foot surgery EXAMINATION/TECHNIQUE: X-RAY - LEFT XR Foot Min 3 Views COMPARISON: XR left foot March 28, 2023 FINDINGS: 3 views of the left foot were obtained. Soft tissue swelling of the first digit. Incision of the medial aspect of the first digit. There has been interval resection of the distal aspect of the proximal phalanx of the first digit. The distal phalanx of the first digit is intact. No osseous erosion. No acute fracture. RAD/Foot min 3 Views IMPRESSION: Postsurgical changes. No significant abnormality. Electronically Signed: Jerome Hurst MD at 22:23 EDT ,
--- NOTE | 2023-03-30 19:49 | CON.PCM.ID_ITS ---
Assessment & Plan Assessment/Plan (1) Diabetic foot infection: PLAN: Wound cx so far showing GNR, staph, strep, now s/p OR today. On empiric vanc/zosyn. Will follow, thank you HPI Consult Data Date of Consult: 03/30/23 HPI Narrative Reason for Consultation: osteo HPI Narrative: SHELLI SHOEMAKER, is a 77 M who presented with about 5 days progressive L 1st toe mild pain, redness, ulceration. No fever, some chills. No recent abx. Thinks it was related to him trimming his calluses. Came to ED, admitted on vanc/zosyn, taken to OR today. full ROS performed and neg except as noted above. [facility] Medical History Diabetes Hypertension Hypertension Home Medications amlodipine 10 mg tablet 10 mg PO DAILY 03/28/23 [History Last Taken 03/28/23] aspirin 81 mg tablet,delayed release (Adult Low Dose Aspirin) 81 mg PO DAILY 03/28/23 [History Last Taken 03/28/23] cholecalciferol (vitamin D3) 50 mcg (2,000 unit) capsule (Vitamin D3) 2,000 unit PO DAILY vitamin 03/28/23 [History Last Taken 03/28/23] cilostazol 100 mg tablet 100 mg PO BID 03/28/23 [History Last Taken 03/28/23] cyanocobalamin (vitamin B-12) 1,000 mcg tablet,extended release (Vitamin B-12 ER) 1,000 mcg PO DAILY vitamin 03/28/23 [History Last Taken 03/28/23] doxazosin 4 mg tablet 4 mg PO QHS 03/28/23 [History Last Taken 03/27/23] dulaglutide 0.75 mg/0.5 mL subcutaneous pen injector (Trulicity) 1.5 mg subcut QWEEK 03/28/23 [History Last Taken 03/22/23] empagliflozin 25 mg tablet (Jardiance) 25 mg PO DAILY 03/28/23 [History Last Ta fran 03/28/23] lisinopril 10 mg-hydrochlorothiazide 12.5 mg tablet 1 tab PO DAILY 03/28/23 [History Last Taken 03/28/23] metformin 1,000 mg tablet 1,000 mg PO BID 03/28/23 [History Last Taken 03/28/23] omeprazole 20 mg capsule,delayed release 20 mg PO DAILY 03/28/23 [History Last Taken 03/28/23] Allergy/AdvReac Type Severity Reaction Status Date / Time No Known Allergies Allergy Verified 03/28/23 18:20 Family History Other Drug abuse Lung cancer Surgical History H/O foot surgery Social History Smoking Status: Former smoker Physical Exam Const alert, oriented x3 and no apparent distress General Appearance: cooperative HEENT normocephalic and head/scalp atraumatic Eyes PERRL and EOMs intact bilaterally Neck supple and No nodes Resp normal air movement and clear to auscultation bilaterally Cardio regular rate and regular rhythm GI soft to palpation, non-tender and non-distended Extremity General Extremity: Negative for edema Skin Skin Narrative: reviewed photos Neuro CN's II-XII intact bilaterally Medical Records Data Medical Nutrition Assessment Dietitian: Malnutrition Criteria Met Start: 03/30/23 14:41 Freq: Status: Active Protocol: Document 03/30/23 15:00 RMA (Rec: 03/30/23 15:00 RMA [id number]) Nutrition Malnutrition Malnutrition (moderate): Acute Illness/Injury Evidenced By Suboptimal Energy Intake ( Moderate),Weight Loss ( Moderate) Intake Problem Inadequate Oral Intake Etiology related to procedure during admit and altered GI function prior to admit Signs/Symptoms as evidenced by NPO currently Status Active Problem Clinical Problem Acute Disease or Injury Related Malnutrition Etiology Moderate protein-calorie malnutrition in the context of acute illness related to altered GI function/inadequate oral intake Signs/Symptoms as evidenced by ~14% unintentional weight loss x 1 year and PO meeting less than 75% estimated nutrition needs Status Active Problem Recommendation Dietitian Recommendations/Changes Recommend diet as tolerated to 2000 calorie consistent carbohydrate. Will add Kalpesh BID w/ medpass. Will add 240 mL glucena shake w/ breakfast meal. Lab / Micro Data Attestation: I reviewed the patient's lab results. 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
[2023-03-30] MEDS: Doxazosin 4 MG Tablet PO (22:07)
[2023-03-30] MEDS: 0.9% Normal Saline (250mL Bag) 250 ML 15 ML IV (22:37)
[2023-03-30 23:45] LABS: Bedside Glucose 138 mg/dL (74-106)
[2023-03-31] VITALS (9 sets, daily range): BP systolic 127–150; BP diastolic 59–83; PULSE 80–106; RESP 18–20; TEMP 36.4–38.3; O2SAT 92–97; BMI 26.5
[2023-03-31] MEDS: Ampicillin/Sulbactam 3 GM in 0.9% Normal Saline (100mL MB+) 100 ML IV ×5 (00:59→23:12)
[2023-03-31] MEDS: Acetaminophen 325 MG Tablet 650 MG PO (01:19)
[2023-03-31] MEDS: Insulin Lispro 100 UNIT/ML INSULN.PEN SC ×4 (05:19→21:18)
[2023-03-31 05:42] LABS: Bedside Glucose 158 mg/dL (74-106)
[2023-03-31] MEDS: oxyCODONE 5 MG Tablet PO (07:56)
--- NOTE | 2023-03-31 08:18 | NURSING ---
This RN is aware of Vital Signs that were taken by Ethel Student Nurse.
--- NOTE | 2023-03-31 08:26 | PCM.PROGNOTE ---
Subjective Subjective Some fever overnight, no other constitutional symptoms. Pain well controlled. No other issues. Objective Data Objective Data Vital Signs: Vital Signs Temp Pulse Resp BP Pulse Ox O2 Del Method O2 Flow Rate 98.3 F 99 18 147/83 H 94 Room Air 2 03/31/23 07:48 03/31/23 07:48 03/31/23 07:48 03/31/23 07:48 03/31/23 07:48 03/31/23 07:48 03/30/23 05:11 Oxygen Flow Rate (L/min) 2 Oxygen Delivery Method Room Air Weight: 86.2 kg Body Mass Index (BMI) 26.4 Intake & Output: Intake and Output for Last 24 Hours 03/29/23 03/30/23 03/31/23 23:59 23:59 23:59 Intake Total 865.75 / 865.75 756.75 / 956.75 424 / 424 Balance 865.75 / 865.75 756.75 / 956.75 424 / 424 Medical Nutrition Assessment Dietitian: Malnutrition Criteria Met Start: 03/30/23 14:41 Freq: Status: Active Protocol: Document 03/30/23 15:00 RMA (Rec: 03/30/23 15:00 RMA [id number]) Nutrition Malnutrition Malnutrition (moderate): Acute Illness/Injury Evidenced By Suboptimal Energy Intake ( Moderate),Weight Loss ( Moderate) Intake Problem Inadequate Oral Intake Etiology related to procedure during admit and altered GI function prior to admit Signs/Symptoms as evidenced by NPO currently Status Active Problem Clinical Problem Acute Disease or Injury Related Malnutrition Etiology Moderate protein-calorie malnutrition in the context of acute illness related to altered GI function/inadequate oral intake Signs/Symptoms as evidenced by ~14% unintentional weight loss x 1 year and PO meeting less than 75% estimated nutrition needs Status Active Problem Recommendation Dietitian Recommendations/Changes Recommend diet as tolerated to 2000 calorie consistent carbohydrate. Will add Kalpesh BID w/ medpass. Will add 240 mL glucena shake w/ breakfast meal. Lab / Micro Data 03/29/23 06:40 03/29/23 06:40 Labs: Laboratory Results - last 24 hr 03/30/23 11:40: POC Glucose 181 H 03/30/23 16:22: POC Glucose 94 03/30/23 22:11: POC Glucose 138 H 03/31/23 05:17: POC Glucose 158 H Micro: Microbiology 03/30/23 16:03 Wound - Left Foot Gram Stain - Final 03/29/23 08:00 Wound - Left Foot Gram Stain - Final 03/29/23 08:00 Wound - Left Foot Wound Culture - Preliminary Citrobacter freundii Staphylococcus aureus Beta streptococcus Alpha hemolytic organism Radiography Diagnostic Testing: Radiology Impression Foot X-Ray 03/30/23 18:10 IMPRESSION: Postsurgical changes. No significant abnormality. Electronically Signed: Jerome Hurst MD at 22:23 EDT , Physical Exam Narrative Neurovascular status unchanged. Incision to medial left hallux well-approximated with intact sutures. Some periwound edema and erythema still noted. Adequate reduction of rigid left hallux status post arthroplasty. No sign DVT. Assessment & Plan Assessment/Plan (1) Non-pressure chronic ulcer of other part of left foot with fat layer exposed: PLAN: Exam performed Dressing change dressed with Betadine Adaptic 4 x 4's Kerlix Eusebio Continue antibiotics, awaiting intraoperative cultures Intraoperatively no real evidence of deep infection or necrotic tissue, I feel patient will likely be stable for oral antibiotics upon discharge Patient heel weightbearing in surgical shoe left side (2) Abscess of left foot: (3) Diabetic foot infection:
[2023-03-31] MEDS: Cyanocobalamin 500 MCG Tablet 1000 MCG PO (09:00)
[2023-03-31] MEDS: Aspirin E.C. 81 MG Tablet PO (09:00)
[2023-03-31] MEDS: Cholecalciferol (VIT D3) 25 MCG TABLET (1,000 UNITS) 50 MCG PO (09:01)
[2023-03-31] MEDS: hydroCHLOROthiazide 12.5mg 12.5 MG PO (09:02)
[2023-03-31] MEDS: Empagliflozin 25 MG Tablet PO (09:02)
[2023-03-31] MEDS: Cilostazol 50 MG Tablet 100 MG PO ×2 (09:03→21:20)
[2023-03-31] MEDS: Pantoprazole Sodium 20 MG Tablet PO (09:03)
[2023-03-31] MEDS: amLODIPine 10 MG Tablet PO (09:03)
[2023-03-31] MEDS: Lisinopril 10 MG Tablet PO (09:03)
[2023-03-31] MEDS: Vancomycin IV 1,000 MG/200 ML BAG 200 MG IV ×2 (10:37→21:34)
[2023-03-31] MEDS: 0.9% Saline Lock 10 ML Syringe IV (10:40)
[2023-03-31 12:33] LABS: Bedside Glucose 247 mg/dL (74-106)
--- NOTE | 2023-03-31 15:40 | PCM.PN.ID ---
Physical Exam Narrative Feeling better, no pain in foot, no fever Const alert and no apparent distress General Appearance: cooperative Resp normal air movement and clear to auscultation bilaterally Cardio regular rate and regular rhythm GI soft to palpation, non-tender and non-distended Skin Skin Narrative: foot wrapped ID ID: Route of nutrition/ use of supplements: [] Nutritional Intake: [] IV Site: [] Jones Catheter: [] Assessment & Plan Assessment/Plan (1) Diabetic foot infection: PLAN: Wound cx so far showing citro, staph aureus, strep, now s/p OR 03/[address] Jeong. On empiric vanc/zosyn. Plan on po abx at discharge Will follow
[2023-03-31 17:08] LABS: Bedside Glucose 162 mg/dL (74-106)
[2023-03-31] MEDS: 0.9% Normal Saline (250mL Bag) 250 ML 15 ML IV (18:03)
--- NOTE | 2023-03-31 18:41 | PN.HOSP_ITS ---
Reason for Visit Reason for Visit: Diagnoses Type 2 diabetes mellitus with foot ulcer (03/28/23) Type 2 diabetes mellitus with other skin complications (03/28/23) Cutaneous abscess of left foot (03/28/23) Cellulitis of left lower limb (03/28/23) Local infection of the skin and subcutaneous tissue, unspecified (03/28/23) Non-pressure chronic ulcer of other part of unspecified foot with unspecified severity (03/28/23) Non-pressure chronic ulcer of other part of left foot limited to breakdown of skin (03/28/23) Non-pressure chronic ulcer of other part of left foot with fat layer exposed (03/28/23) Hallux rigidus, left foot (03/28/23) Subjective Subjective Patient was seen and examined today, according to the notes from infectious diseases, it is planned that the patient will go home on oral antibiotics. Wound culture shows several bacteria. Objective Data Objective Data Vital Signs: Vital Signs Temp Pulse Resp BP Pulse Ox O2 Del Method O2 Flow Rate 99.2 F H 96 18 136/71 H 92 Room Air 2 03/31/23 16:39 03/31/23 16:39 03/31/23 16:39 03/31/23 16:39 03/31/23 16:39 03/31/23 16:39 03/30/23 05:11 Oxygen Flow Rate (L/min) 2 Oxygen Delivery Method Room Air Weight: 86.2 kg Body Mass Index (BMI) 26.4 Intake & Output: Intake and Output for Last 24 Hours 03/29/23 03/30/23 03/31/23 23:59 23:59 23:59 Intake Total 865.75 / 865.75 756.75 / 956.75 1436.5 / 1436.5 Balance 865.75 / 865.75 756.75 / 956.75 1436.5 / 1436.5 Medical Nutrition Assessment Dietitian: Malnutrition Criteria Met Start: 03/30/23 14:41 Freq: Status: Active Protocol: Document 03/30/23 15:00 RMA (Rec: 03/30/23 15:00 RMA [id number]) Nutrition Malnutrition Malnutrition (moderate): Acute Illness/Injury Evidenced By Suboptimal Energy Intake ( Moderate),Weight Loss ( Moderate) Intake Problem Inadequate Oral Intake Etiology related to procedure during admit and altered GI function prior to admit Signs/Symptoms as evidenced by NPO currently Status Active Problem Clinical Problem Acute Disease or Injury Related Malnutrition Etiology Moderate protein-calorie malnutrition in the context of acute illness related to altered GI function/inadequate oral intake Signs/Symptoms as evidenced by ~14% unintentional weight loss x 1 year and PO meeting less than 75% estimated nutrition needs Status Active Problem Recommendation Dietitian Recommendations/Changes Recommend diet as tolerated to 2000 calorie consistent carbohydrate. Will add Kalpesh BID w/ medpass. Will add 240 mL glucena shake w/ breakfast meal. Lab / Micro Data 03/29/23 06:40 03/29/23 06:40 Labs: Laboratory Results - last 24 hr 03/30/23 22:11: POC Glucose 138 H 03/31/23 05:17: POC Glucose 158 H 03/31/23 12:10: POC Glucose 247 H 03/31/23 16:41: POC Glucose 162 H Micro: Microbiology 03/29/23 08:00 Wound - Left Foot Gram Stain - Final 03/29/23 08:00 Wound - Left Foot Wound Culture - Preliminary Citrobacter freundii Staphylococcus aureus Beta streptococcus Gram positive gi 03/28/23 19:15 Blood Culture (Wb) - Anticubital Left Blood Culture - Preliminary No growth in 48 hours. 03/28/23 18:53 Blood Culture (Wb) - Anticubital Left Blood Culture - Preliminary No growth in 48 hours. 03/30/23 16:03 Wound - Left Foot Gram Stain - Final Radiography Diagnostic Testing: Radiology Impression Foot X-Ray 03/30/23 18:10 IMPRESSION: Postsurgical changes. No significant abnormality. Electronically Signed: Jerome Hurst MD at 22:23 EDT , Physical Exam Narrative alert, oriented x3, no apparent distress and healthy appearing General Appearance: cooperative, well kempt and well developed Orientation / Consciousness: awake, oriented to person, oriented to place and oriented to time HEENT normocephalic, head/scalp atraumatic and moist oral mucous membranes Eyes PERRL, EOMs intact bilaterally and conjunctivae normal Neck supple, no JVD, thyroid normal and no carotid bruits General: trachea midline Resp normal respiratory effort and clear to auscultation bilaterally Auscultation: Negative for rales, rhonchi or wheezes Cardio regular rate, regular rhythm, S1 normal heart sound, S2 normal heart sound, no murmurs, no rub and no gallops GI normal to inspection, nondistended, normoactive bowel sounds, soft to palpation, non-tender and non-distended Extremity Extremity Narrative: Patient's left foot was wrapped in surgical dressing, this was not removed for examination of the area Skin no rashes or lesions noted General Skin Exam: no breakdown Neuro oriented x3, CN's II-XII intact bilaterally, no focal motor deficits and no sensory deficits noted Sensorium / Orientation: awake and alert Speech: speech normal Psych affect normal Assessment & Plan Assessment/Plan (1) Non-pressure chronic ulcer of other part of left foot with fat layer exposed: PLAN: Plan 1. 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 meeting less than 75% of estimated nutritional [id number] diet was recommended, Kalpesh twice daily with med Pass will be given, 240 mL Glucerna shake with breakfast meal is being given Total clinical time spent by myself addressing patient's medical issues, reviewing all of his data, and collaborating with patient's care team: 35- minutes Charges/Coding Visit Charges Inpatient E&M: 14473 Subs Hosp L2
[2023-03-31 21:15] LABS: Vancomycin, Trough Level 19.6 ug/mL (5.0-15.0)
[2023-03-31] MEDS: Doxazosin 4 MG Tablet PO (21:20)
[2023-03-31 21:42] LABS: Bedside Glucose 248 mg/dL (74-106)
--- NOTE | 2023-03-31 21:43 | PCM.RX.CS ---
Consult Antibiotic Management Pharmacy has been consulted to manage selected antiobiotic: Vancomycin Type of Intervention Type of Consult: Follow-up Labs Labs: Sodium 138 mmol/L (136-145) 03/29/23 06:40 Potassium 3.7 mmol/L (3.5-5.1) 03/29/23 06:40 Chloride 106 mmol/L (98-107) 03/29/23 06:40 Carbon Dioxide 25.0 mmol/L (21.0-32.0) 03/29/23 06:40 Anion Gap 7 (5-15) 03/29/23 06:40 BUN 15 mg/dL (7-18) 03/29/23 06:40 Creatinine 1.10 mg/dL (0.70-1.30) 03/29/23 06:40 Est GFR (MDRD) Af Amer 84 mL/min (>60) 03/29/23 06:40 Est GFR (MDRD) Non-Af 69 mL/min (>60) 03/29/23 06:40 BUN/Creatinine Ratio 13.6 RATIO (10-20) 03/29/23 06:40 Glucose 130 mg/dL (74-106) H 03/29/23 06:40 Vancomycin Trough 19.6 ug/mL (5.0-15.0) H 03/31/23 20:33 Microbiology Microbiology: Microbiology 03/29/23 08:00 Wound - Left Foot Gram Stain - Final 03/29/23 08:00 Wound - Left Foot Wound Culture - Preliminary Citrobacter freundii Staphylococcus aureus Beta streptococcus Gram positive gi 03/28/23 19:15 Blood Culture (Wb) - Anticubital Left Blood Culture - Preliminary No growth in 48 hours. 03/28/23 18:53 Blood Culture (Wb) - Anticubital Left Blood Culture - Preliminary No growth in 48 hours. 03/30/23 16:03 Wound - Left Foot Gram Stain - Final Pharmacy Plan for Drug Dosing Pharmacy Plan for Drug Dosing: Pharmacy Service will continue to monitor and adjust dosing as required. TROUGH 19.6 @ 10 HRS. NO CHANGES, FOLLOW UP TROUGH IN 2 DAYS Follow-Up Labs Follow-Up Labs: Trough: Vancomycin Date/Time Labs Ordered Labs to be done on [date and time ordered]: 04/02 @ 2030
[2023-04-01] MEDS: oxyCODONE 5 MG Tablet PO (03:54)
[2023-04-01 03:58] VITALS: BP 124/67; PULSE 86; RESP 18; TEMP 36.6; O2SAT 96
[2023-04-01 04:00] VITALS: BP 124/67; PULSE 86; RESP 18; TEMP 36.6; O2SAT 96
[2023-04-01] MEDS: Ampicillin/Sulbactam 3 GM in 0.9% Normal Saline (100mL MB+) 100 ML IV (05:20)
[2023-04-01 07:12] LABS: Bedside Glucose 136 mg/dL (74-106)
[2023-04-01 08:50] VITALS: O2SAT 92
[2023-04-01] MEDS: Cholecalciferol (VIT D3) 25 MCG TABLET (1,000 UNITS) 50 MCG PO (08:55)
[2023-04-01] MEDS: Cyanocobalamin 500 MCG Tablet 1000 MCG PO (08:55)
[2023-04-01] MEDS: Aspirin E.C. 81 MG Tablet PO (08:55)
[2023-04-01 08:58] VITALS: BP 133/91; PULSE 82; RESP 16; TEMP 36.6; O2SAT 94
[2023-04-01] MEDS: Vancomycin IV 1,000 MG/200 ML BAG 200 MG IV (09:06)
[2023-04-01] MEDS: amLODIPine 10 MG Tablet PO (09:49)
[2023-04-01] MEDS: Empagliflozin 25 MG Tablet PO (09:49)
[2023-04-01] MEDS: Cilostazol 50 MG Tablet 100 MG PO (09:49)
[2023-04-01] MEDS: hydroCHLOROthiazide 12.5mg 12.5 MG PO (09:49)
[2023-04-01] MEDS: Lisinopril 10 MG Tablet PO (09:49)
[2023-04-01] MEDS: Pantoprazole Sodium 20 MG Tablet PO (09:49)
--- NOTE | 2023-04-01 10:09 | PCM.PN.ID ---
Physical Exam Narrative Feeling better, no fever, pain controlled Const alert and no apparent distress General Appearance: cooperative Resp normal air movement and clear to auscultation bilaterally Cardio regular rate and regular rhythm GI soft to palpation, non-tender and non-distended Skin Skin Narrative: foot wrapped ID ID: Route of nutrition/ use of supplements: [] Nutritional Intake: [] IV Site: [] Jones Catheter: [] Assessment & Plan Assessment/Plan (1) Diabetic foot infection: PLAN: Wound cx so far showing citro, MSSA, actino, strep, now s/p OR 03/[address] Jeong. On empiric vanc/zosyn. Ok for home with po cipro/augmentin for 10 more days. Will sign off
--- NOTE | 2023-04-01 10:37 | PCM.DC ---
Discharge Instructions Diet Discharge Diet: 1800 Calorie Control Diet Activity Discharge Activity: Return to Normal Activity Weight Bearing Status: Weight bearing as tolerated (with post op shoe) Dressing / Incision Call your doctor if your incision/area has: - Remove Dressing in: leave in place till F/U Follow Up Care Test Results: Test results from this visit will be discussed in further detail at your follow-up appointment, if applicable. Discharge Plan Admission Admit Date/Time: 03/28/23 20:25 Primary Reason for Your Visit: neuropathic foot infection Attending Provider: Harrison Carmona Primary Care Provider: Cony Emanuel Consulting Providers: Juan M Lacy; Misael Loera; Ponce Zimmerman; Srinivas Jeong Discharge Orders/Prescriptions Prescriptions: New ciprofloxacin HCl [Cipro] 500 mg tablet 500 mg PO BID Qty: 20 0RF amoxicillin-pot clavulanate 875-125 mg tablet 1 tab PO BID Qty: 30 0RF No Action amlodipine 10 mg tablet 10 mg PO DAILY cilostazol 100 mg tablet 100 mg PO BID doxazosin 4 mg tablet 4 mg PO QHS Trulicity 0.75 mg/0.5 mL pen injector 1.5 mg SUBCUT QWEEK Jardiance 25 mg tablet 25 mg PO DAILY lisinopril-hydrochlorothiazide 10-12.5 mg tablet 1 tab PO DAILY metformin 1,000 mg tablet 1,000 mg PO BID omeprazole 20 mg capsule,delayed release(DR/EC) 20 mg PO DAILY aspirin [Adult Low Dose Aspirin] 81 mg tablet,delayed release (DR/EC) 81 mg PO DAILY cholecalciferol (vitamin D3) [Vitamin D3] 50 mcg (2,000 unit) capsule 2,000 unit PO DAILY Patient Comments: TAKE 1 CAPSULE BY MOUTH EVERY DAY cyanocobalamin (vitamin B-12) [Vitamin B-12] 1,000 mcg tablet extended release 1,000 mcg PO DAILY Referrals / Follow Up: Srinivas Jeong DPM [Med Staff - Active Staff] - See Referral Note (on Tuesday-office will call you) Cony Emanuel MD [Primary Care Provider] - NOT,DEFINED [Non-Staff] - Disposition Disposition (needs filled in before D/C Order can be placed): Home, Self Care
--- NOTE | 2023-04-01 10:44 | DS.PCM_ITS ---
Providers Date of Admission: 03/28/23 Date of Discharge: 04/01/23 Primary Care Physician: Dr. 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 meeting less than 75% of estimated nutritional [id number] diet was recommended, Kalpesh twice daily with med Pass will be given, 240 mL Glucerna shake with breakfast me al is being given Total clinical time spent by myself addressing patient's medical issues, reviewing all of his data, and collaborating with patient's care team: 35- minutes Medications at Discharge Home Medications amlodipine 10 mg tablet 10 mg PO DAILY 03/28/23 aspirin 81 mg tablet,delayed release (Adult Low Dose Aspirin) 81 mg PO DAILY 03/28/23 cholecalciferol (vitamin D3) 50 mcg (2,000 unit) capsule (Vitamin D3) 2,000 unit PO DAILY vitamin 03/28/23 cilostazol 100 mg tablet 100 mg PO BID 03/28/23 cyanocobalamin (vitamin B-12) 1,000 mcg tablet,extended release (Vitamin B-12 ER) 1,000 mcg PO DAILY vitamin 03/28/23 doxazosin 4 mg tablet 4 mg PO QHS 03/28/23 dulaglutide 0.75 mg/0.5 mL subcutaneous pen injector (Trulicity) 1.5 mg subcut QWEEK 03/28/23 empagliflozin 25 mg tablet (Jardiance) 25 mg PO DAILY 03/28/23 lisinopril 10 mg-hydrochlorothiazide 12.5 mg tablet 1 tab PO DAILY 03/28/23 metformin 1,000 mg tablet 1,000 mg PO BID 03/28/23 omeprazole 20 mg capsule,delayed release 20 mg PO DAILY 03/28/23 amoxicillin 875 mg-potassium clavulanate 125 mg tablet 1 tab PO BID #30 tabs 04/01/23 ciprofloxacin HCl 500 mg tablet (Cipro) 500 mg PO BID #20 tabs 04/01/23 Hospital Course Operations - (Left hallux interphalangeal joint arthroplasty) Procedures None Summary of Care Provided Minutes Spent on Discharge: 31 Hospital Course: This 77-year-old white male was seen in the emergency room at [facility] with complaints of pain and redness in his left foot near the great toe. Work-up in the emergency room included a CBC which showed a normal white blood cell count, hemoglobin was 12.5, chemistry panel was remarkable for a potassium of 3.2 and a glucose of 153. X-ray of the left foot showed swelling of the first digit, no radiographic evidence of osteomyelitis was noted. Podiatry was contacted by the emergency room physician, he agreed to see the patient in consultation and the case was admitted to the hospitalist service at [facility]. Patient was placed on IV antibiotics and seen in consultation by infectious diseases. Patient underwent surgery on the left great toe but it was noted that the patient's foot infection was not deep and did not extend to the bone. On 04/01/2023, patient was seen and examined: On examination he appeared in good health and spirits. Vital signs as documented. Skin warm and dry and without overt rashes. Neck without JVD, neck was supple, trachea midline, thyroid was normal. Lungs clear bilaterally, normal air movement was noted. Heart exam notable for regular rhythm, normal sounds and absence of murmurs, rubs or gallops. Abdomen unremarkable and without evidence of organomegaly, masses, or abdominal aortic enlargement. Bowel sounds are present, abdomen is not distended. Extremities-left foot was wrapped with surgical dressing this was not removed for examination of the area. Neuro: Cranial nerves II through XII are grossly intact, no focal motor deficits were noted, sensation to light touch and pinprick intact, motor exam 5/5 throughout. Psych: Patient is alert and oriented x3, he does not appear anxious or depressed, he does not appear agitated. On 04/01/2023, patient was seen and examined and felt to be in stable condition for discharge home. Medical Records Data Medical Nutrition Assessment Dietitian: Malnutrition Criteria Met Start: 03/30/23 14:41 Freq: Status: Active Protocol: Document 03/30/23 15:00 RMA (Rec: 03/30/23 15:00 RMA [id number]) Nutrition Malnutrition Malnutrition (moderate): Acute Illness/Injury Evidenced By Suboptimal Energy Intake ( Moderate),Weight Loss ( Moderate) Intake Problem Inadequate Oral Intake Etiology related to procedure during admit and altered GI function prior to admit Signs/Symptoms as evidenced by NPO currently Status Active Problem Clinical Problem Acute Disease or Injury Related Malnutrition Etiology Moderate protein-calorie malnutrition in the context of acute illness related to altered GI function/inadequate oral intake Signs/Symptoms as evidenced by ~14% unintentional weight loss x 1 year and PO meeting less than 75% estimated nutrition needs Status Active Problem Recommendation Dietitian Recommendations/Changes Recommend diet as tolerated to 2000 calorie consistent carbohydrate. Will add Kalpesh BID w/ medpass. Will add 240 mL glucena shake w/ breakfast meal. Weight / BMI Weight Weight: 86.2 kg Body Mass Index (BMI) 26.4 ABG / Lab / Microbiology Data 03/29/23 06:40 03/29/23 06:40 Laboratory: Laboratory Results - last 24 hr 03/31/23 12:10: POC Glucose 247 H 03/31/23 16:41: POC Glucose 162 H 03/31/23 20:33: Vancomycin Trough 19.6 H 03/31/23 21:15: POC Glucose 248 H 04/01/23 06:49: POC Glucose 136 H Microbiology: Microbiology 03/30/23 16:03 Wound - Left Foot Gram Stain - Final 03/30/23 16:03 Wound - Left Foot Anaerobic Culture - Preliminary Checking for anaerobes, further studies to follow. 03/29/23 08:00 Wound - Left Foot Gram Stain - Final 03/29/23 08:00 Wound - Left Foot Wound Culture - Final Citrobacter freundii Staphylococcus aureus Streptococcus agalactiae (B) Actinomyces turicensis 03/29/23 08:00 Wound - Left Foot Anaerobic Culture - Preliminary Gram negative gi Anaerobic cocci 03/28/23 19:15 Blood Culture (Wb) - Anticubital Left Blood Culture - Preliminary No growth in 48 hours. 03/28/23 18:53 Blood Culture (Wb) - Anticubital Left Blood Culture - Preliminary No growth in 48 hours. D/C Instructions Discharge Diet: 1800 Calorie Control Diet Weight Bearing Status: Weight bearing as tolerated (with post op shoe) Call your doctor if your incision/area has: - Meaningful Use Info Meaningful Use Diagnoses (Choose all that apply): None applicable Discharge Plan Admission Admit Date/Time: 03/28/23 20:25 Primary Reason for Your Visit: neuropathic foot infection Attending Provider: Harrison Carmona Primary Care Provider: Cony Emanuel Consulting Providers: Juan M Lacy; Misael Loera; Ponce Zimmerman; Srinivas Alcazar Discharge Orders/Prescriptions Prescriptions: New ciprofloxacin HCl [Cipro] 500 mg tablet 500 mg PO BID Qty: 20 0RF amoxicillin-pot clavulanate 875-125 mg tablet 1 tab PO BID Qty: 30 0RF No Action amlodipine 10 mg tablet 10 mg PO DAILY cilostazol 100 mg tablet 100 mg PO BID doxazosin 4 mg tablet 4 mg PO QHS Trulicity 0.75 mg/0.5 mL pen injector 1.5 mg SUBCUT QWEEK Jardiance 25 mg tablet 25 mg PO DAILY lisinopril-hydrochlorothiazide 10-12.5 mg tablet 1 tab PO DAILY metformin 1,000 mg tablet 1,000 mg PO BID omeprazole 20 mg capsule,delayed release(DR/EC) 20 mg PO DAILY aspirin [Adult Low Dose Aspirin] 81 mg tablet,delayed release (DR/EC) 81 mg PO DAILY cholecalciferol (vitamin D3) [Vitamin D3] 50 mcg (2,000 unit) capsule 2,000 unit PO DAILY Patient Comments: TAKE 1 CAPSULE BY MOUTH EVERY DAY cyanocobalamin (vitamin B-12) [Vitamin B-12] 1,000 mcg tablet extended release 1,000 mcg PO DAILY Referrals / Follow Up: Srinivas Jeong DPM [Med Staff - Active Staff] - See Referral Note (on Tuesday-at 9.00 am ) Cony Emanuel MD [Primary Care Provider] - NOT,DEFINED [Non-Staff] - Disposition Disposition (needs filled in before D/C Order can be placed): Home, Self Care Charges/Coding Visit Charges Inpatient E&M: 07194 Disch Hosp >30min
--- NOTE | 2023-04-01 11:14 | CASEMGMT ---
LUIS ENRIQUE CM into pt room, pt lying in bed. Pt states granddtr will be able to do dressing changes for pt and he states he is going to go to the pod office for follow up. Pt denies any homegoing needs. He states that he is able to maintain his wt bearing status. Pt denies further needs.
[2023-04-01] MEDS: Insulin Lispro 100 UNIT/ML INSULN.PEN SC (11:32)
[2023-04-01] MEDS: 0.9% Saline Lock 10 ML Syringe IV (11:33)
[2023-04-01 12:02] LABS: Bedside Glucose 283 mg/dL (74-106)
[2023-04-01 12:55] VITALS: BP 105/69; PULSE 95; RESP 16; TEMP 36.6; O2SAT 100
== END 2023-04-01 13:09 | disposition home or self-care (01) | DRG 623 ==
LOC: ED 19:59 → MS3 21:06
PROVIDERS: Internal Medicine; Podiatrist; Admitting Provider Hospitalist; Emergency Provider Emergency Medicine; PCP Internal Medicine; Visit Provider Internal Medicine
PROC: 0JBR0ZZ Excision of Left Foot Subcutaneous Tissue and Fascia, Open Approach (ICD-10-PCS; CPT 28899; principal; 2023-03-30 14:35)
DX: E11.621 Type 2 diabetes mellitus with foot ulcer (principal); L03.116 Cellulitis of left lower limb; E44.0 Moderate protein-calorie malnutrition; L02.612 Cutaneous abscess of left foot; E11.22 Type 2 diabetes mellitus with diabetic chronic kidney disease; D64.9 Anemia, unspecified; B95.61 Methicillin susceptible Staphylococcus aureus infection as the cause of diseases classified elsewhere; E11.42 Type 2 diabetes mellitus with diabetic polyneuropathy; E11.628 Type 2 diabetes mellitus with other skin complications; E11.65 Type 2 diabetes mellitus with hyperglycemia; L97.522 Non-pressure chronic ulcer of other part of left foot with fat layer exposed; I12.9 Hypertensive chronic kidney disease with stage 1 through stage 4 chronic kidney disease, or unspecified chronic kidney disease; E87.6 Hypokalemia; N18.2 Chronic kidney disease, stage 2 (mild); Z79.82 Long term (current) use of aspirin; Z79.84 Long term (current) use of oral hypoglycemic drugs; Z87.891 Personal history of nicotine dependence; Z79.02 Long term (current) use of antithrombotics/antiplatelets; R63.4 Abnormal weight loss; Z79.2 Long term (current) use of antibiotics; Z68.26 Body mass index [BMI] 26.0-26.9, adult
CPT/HCPCS: 36415; 73630; 73718; 80048; 80202; 82962; 83036; 83605; 85025; 85652; 86140; 87040; 87070; 87075; 87077; 87186; 87205; 88305; 88311; 93005; 94668; 99284; J7050; J7120; A4216; J0295; J2405